=== PATIENT | female | born 1955 | race African-American/Black ===

== ENCOUNTER 2018-07-19 06:26 | Outpatient (CLI) ==
--- NOTE | 2018-07-19 10:13 | ECHO2D ---
Date of Exam: 07/19/18 Ordering Physician: DR. CHIOMA PINEDA Room #: OP Reason for Echo: HEART MURMUR M-Mode Normal Adult Results LV Dimensions Normal Adult Results AoV Opening excursions >1.6 >1.6 LVEDD-base- 3.5-5.8 3.6 Ao root dimensions 2.0-3.7 2.8 LVESD-base- 3.1-4.6 L. Atrium dimensions 1.9-3.8 3.4 Post. Wall thickness 0.8-1.1 1.1 IV septum (thickness) 0.7-1.2 1.2 Post. Wall excursion 0.72-1.3 NORMAL Septal motion NORMAL Systolic motion R. Ventricular cavity 1.5-2.0 NORMAL LVEF 60% 65% Paradoxical septal wall motion NORMAL 2-D : 2-D M Mode Echocardiogram was performed using apical four chamber and left parasternal long and short axis views. Mitral, tricuspid and aortic valves appear to be normal. Contractility of the left ventricle seems to be normal, so is the cavity size. Left atrial cavity size and aortic root appear to be normal. There is no pericardial effusion. There is no thrombus noted in the left ventricular or left aortic cavity. No mitral valve prolapse noted. M-MODE: MV: NORMAL AV: NORMAL TV: NORMAL PV: CHAMBER SIZE: NORMAL WALL MOTION: NORMAL PERICARDIUM: NORMAL INTERPRETATION: 1. BORDERLINE LEFT VENTRICULAR HYPERTROPHY 2. NORMAL VALVES 3. NORMAL LEFT VENTRICULAR CONTRACTILITY 4. NORMAL LEFT ATRIAL AND LEFT VENTRICLE SIZE MTDD
== END 2018-07-19 06:27 | disposition home or self-care (01) ==
LOC: CAR 06:26
PROVIDERS: ATTEND Family Medicine
DX: R01.1 Cardiac murmur, unspecified (principal)

== ENCOUNTER 2018-07-21 08:28 | Outpatient (CLI) ==
--- NOTE | 2018-07-30 10:54 | MAMMO ---
EXAM: Digital screening mammogram with tomosynthesis HISTORY: Screening COMPARISON: 07/27/2017 FINDINGS: Digital MLO and CC views of the right and left breast were performed. Tomosynthesis was performed. Computer aided detection utilized. There are scattered fibroglandular densities. Benign appearing bilateral calcifications. Nodule right central lateral breast posterior depth that likely corresponds with a nodule in the central breast on MLO view. Nodule in the left retroareolar breast . Nodule in the left superior lateral breast. IMPRESSION: Right breast nodule and two left breast nodules. Bilateral diagnostic mammogram and u ltrasound recommended. BIRADS category 0, incomplete
== END 2018-07-21 08:29 | disposition home or self-care (01) ==
LOC: RAD 08:28
PROVIDERS: ATTEND Family Medicine
DX: Z12.31 Encounter for screening mammogram for malignant neoplasm of breast (principal)

== ENCOUNTER 2018-08-09 10:33 | Outpatient (CLI) ==
--- NOTE | 2018-08-09 11:45 | US ---
EXAM: Bilateral breast ultrasound. History: Bilateral breast masses. Comparison: Bilateral diagnostic mammogram 08/09/2018 Technique: Multiple sonographic images through the bilateral breast were obtained. Color duplex Dop pler was used to interrogate vascular flow. Findings: There are several anechoic simple cysts within the left retroareolar region with the large st measuring 0.6 cm. These correlate with mammography. 1 cm lobulated mixed echogenic lesion within the left axillary tail. This correlates with mammography. 0.5 cm simple cyst within the right alan st at 8 o'clock 8 cm from nipple. This correlates with mammography. Impression: 1. Probably benign 1 cm lobulated lesion within the left axillary tail. Differential diagnosis woul d include lymph node or cyst cluster. Recommend follow-up ultrasound and mammogram in 6 months to do cument stability. BIRADS 3, probably benign
--- NOTE | 2018-08-09 11:47 | MAMMO ---
EXAM: Bilateral digital diagnostic mammogram (2-D and 3-D) History: Bilateral breast masses. Comparison: Bilateral mammogram 07/21/2018 Findings: Additional views of the bilateral breasts were obtained. The additional views confirm a 9 o'clock right breast mass, subareolar left breast masses and mass within the left axillary tail. No suspicious microcalcifications. Impression: Indeterminate bilateral breast masses. Recommend further evaluation with bilateral ultr asound. BIRADS 0, incomplete further evaluation recommended
== END 2018-08-09 10:34 | disposition home or self-care (01) ==
LOC: RAD 10:33
PROVIDERS: ATTEND Family Medicine
DX: N63.0 Unspecified lump in unspecified breast (principal)

== ENCOUNTER 2019-02-16 08:15 | Outpatient (RCR) ==
--- NOTE | 2019-02-07 11:44 | RS.OPPTDN ---
Subjective Date of Note: 02/07/19 Visit #: 4 Number of visits approved by Insurance: 8 Date of Evaluation: 01/21/19 Payer Source: Medicaid Treatment Diagnosis: Low back pain, sciatica R LE Current Subjective/complaints:: Patient states back pain is lessening, but did elevate over the weekend due to prolonged driving with family and up on her feet preparing meals. *Precautions: n/a - Treatment Modality: Ultrasound Parameters/Method Applied: continuous @ 1.5 w/cm2 x 11 mins to the R lumbar paraspinals and SI joint Patient Position: Left Sidelying - Heat/Cryotherapy Treatment: Hot Pack (over the low back and R hip x 20 mins in sidelying) Interventions - Exercise/Activities/Manual Therapy Exercises/Activities: Assisted stretching of: SKTC, HS, Piriformis, figure 4, and lower trunk rotation bilaterally x 4. Patient continues with pelvic stability: pillow squeezes, isometric hip abd, isometric hip flexion, QS and SLR (for the R) 2x10. Added bridging 2x10 reps. Total minutes of Exercise: 22 Manual Therapy: n/a HOME EXERCISE PROGRAM: pt given written HEP including: hamstring stretch, piriformis stretch, knee to chest, isometric hip add, resisted hip flex, prone lying. - Charges Timed Code Treatment Minutes: 32 Total Treatment Time: 52 Procedures billed for this date of service:: hp, u/s, ex Assessment: Patient has been having less pain through therapy interventions demo also improved HS length, but over the weekend she has had elevated pain related to prolonged driving and then standing visiting and preparing meals for family. She demo increased tightness with HS today, but should benefit from further progression of stretching and trunk strengthening. Patient Education: Body/Joint mechanics, Home Exercise Program Patient demonstrates compliance with HEP?: Yes Short Term Goals Goal #1: pt independent with initial HEP Goal to be met by: 02/04/19 Progress towards Goal:: Progressing Goal #2: pt demonstrate decreased muscle tightness B hamstring, piriformis ms. 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 Goal to be met by: 02/25/19 Plan Dates of Culinary Intern Goals: 02/25/19 Expiration date of current Insurance Approval:: 02/25/19 PLAN: Patient to continue BIW for modalities and therex for the low back and R SI
--- NOTE | 2019-02-09 10:09 | RS.OPPTDN ---
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 However, she has been able to wean down off of prescription pain medication to now only taking it 2 times per week. She also admits that yesterday (prior to registration) was the first day she actually felt significant relief to her R low back. She is having less frequent and less intense pain to the R SI. No pain today to the LEs. Patient says she is performing HEP. *Precautions: n/a - Treatment Modality: Ultrasound Parameters/Method Applied: continuous @ 1.5 w/cm2 x 10 mins to the R lumbar paraspinals and SI joint Patient Position: Left Sidelying - Heat/Cryotherapy Treatment: Hot Pack (over the low back and R SI x 15 mins in sidelying) Interventions - Exercise/Activities/Manual Therapy Exercises/Activities: Assisted stretching of: SKTC, HS, Piriformis, figure 4, and lower trunk rotation bilaterally x 4. Patient continues with pelvic stability: pillow squeezes, isometric hip abd, isometric hip flexion, QS and SLR (for the R) 2x10. Bridging 2x10 reps. Patient educated on general nutrition to assist with healing and promote improved pain. Encouraged increased water intake to flush inflammation and continuing to use ice/ heat for relief during flares with also maintaining pillow support for improved ease for bedtime. Total minutes of Exercise: 20 Manual Therapy: n/a HOME EXERCISE PROGRAM: pt given written HEP including: hamstring stretch, piriformis stretch, knee to chest, isometric hip add, resisted hip flex, prone lying. - Charges Timed Code Treatment Minutes: 30 Total Treatment Time: 45 Procedures billed for this date of service:: hp, u/s, ex Assessment: Patient demo improved R HS and piriformis length when compared to last week. She presents with decreased tenderness to mild palpation to the R SI joint. She is compliant with HEP and is proactive with performing when she begins to have soreness. She has progressed with not having radicular symptoms to the LEs, but intermittently to the R SI. Michelle has been able to decrease dependency on prescription pain meds to only taking twice per week. 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 She is also actively caring for 2 granddaughters and would benefit from possibly adding estim to u/s and further strengthening/aerobic activity. Patient Education: Education of diagnosis, Body/Joint mechanics, Home Exercise Program, Education of Plan of Care Patient demonstrates compliance with HEP?: Yes Short Term Goals Goal #1: pt independent with initial HEP Goal to be met by: 02/04/19 Progress towards Goal:: Met Goal #2: pt demonstrate decreased muscle tightness B hamstring, piriformis ms. Goal to be met by: 02/04/19 Progress towards Goal:: Met Goal #3: Decrease pain < 6/10 Goal to be met by: 02/04/19 Progress towards Goal:: Met Skilled Nursing Goals Goal #1: pt report no radiating pain into LE's Goal to be met by: 02/25/19 Progress towards goal: Progressing Goal #2: Decrease low back pain <4/10 Goal to be met by: 02/25/19 Progress towards goal: Progressing Goal #3: Improve lumbar ROM WFL's w less pain Goal to be met by: 02/25/19 Progress towards goal: Progressing Goal #4: pt able to participate with normal household activities w less pain. 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
--- NOTE | 2019-02-14 14:35 | RS.OPPTDN ---
Subjective Date of Note: 02/14/19 Visit #: 6 Number of visits approved by Insurance: 8, pending Date of Evaluation: 01/21/19 Payer Source: Medicaid Treatment Diagnosis: Low back pain, sciatica R LE Current Subjective/complaints:: Patient says she had some soreness into the R side of her low back running into her groin yesterday while up on her feet cooking and visiting with grandchildren/family. She says she stopped what she was doing and performed stretches and those symptoms went away. *Precautions: n/a Pain Assessment - Pain Description Pain Location: Pain at best 0/10, 710 at worst - Treatment Modality: Ultrasound Parameters/Method Applied: continuous @ 1.5 w/cm2 x 10 mins to the R SI and R L4 /L5 paraspinals Patient Position: Left Sidelying - Heat/Cryotherapy Treatment: Hot Pack (over the low back and R hip/SI x 15 mins in L sidelying) Interventions - Exercise/Activities/Manual Therapy Exercises/Activities: Assisted stretching of: SKTC, HS, Piriformis, figure 4, and lower trunk rotation bilaterally x 4. Patient continues with pelvic stability: ball squeezes, isometric hip abd, isometric hip flexion, QS and SLR (for the R) 2x10. Bridging 2x10 reps. Hooklying hip abd with red tband, and red tband for R hip flexion with knee bent. Total minutes of Exercise: 22 Manual Therapy: n/a HOME EXERCISE PROGRAM: pt given written HEP including: hamstring stretch, piriformis stretch, knee to chest, isometric hip add, resisted hip flex, prone lying. - Charges Timed Code Treatment Minutes: 32 Total Treatment Time: 47 Procedures billed for this date of service:: hp, u/s, ex Assessment: Patient having less frequent pain to the R SI and groin and less intense. She also is attentive enough to when she notices this radicular pain, she stops what she is doing and performs HEP, which at times takes pain completely away. HS and piriformis length are now normalized. She will finish up one more session this week to reassess Oswestry LBP Scale and progress trunk and hip strengthening. Patient Education: Education of diagnosis, Body/Joint mechanics, Home Exercise Program, Education of Plan of Care Patient demonstrates compliance with HEP?: Yes Short Term Goals Goal #1: pt independent with initial HEP Goal to be met by: 02/04/19 Progress towards Goal:: Met Goal #2: pt demonstrate decreased muscle tightness B hamstring, piriformis ms. 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 Goal to be met by: 02/25/19 Progress towards goal: Progressing Plan Dates of Senior Living Goals: 02/25/19 Expiration date of current Insurance Approval:: 02/25/19 PLAN: continue x 1 more session
--- NOTE | 2019-02-16 14:55 | RS.OPPTDN ---
Subjective Date of Note: 02/16/19 Visit #: 7 Number of visits approved by Insurance: pending, requested 8 Date of Evaluation: 01/21/19 Payer Source: Medicaid Treatment Diagnosis: Low back pain, sciatica R LE Current Subjective/complaints:: Patient says her pain has been significantly better by PT. Reports she continues working on HEP and plans to begin a walking routine as the weather cools. She says her pain is along the waistline , but is very minimal. *Precautions: n/a - Treatment Modality: Ultrasound Parameters/Method Applied: Continuous @ 1.5 w/cm2 x 10 mins to bilateral lower lumbar paraspinals with focus to the R Patient Position: Left Sidelying - Heat/Cryotherapy Treatment: Hot Pack (mid to low back in supine x 20 mins) Interventions - Exercise/Activities/Manual Therapy Exercises/Activities: Assisted stretching of: SKTC, HS, Piriformis, figure 4, and lower trunk rotation bilaterally x 4. Patient continues with pelvic stability: ball squeezes, isometric hip abd, isometric hip flexion, QS and SLR (for the R) 2x10. Bridging 2x10 reps. Hooklying hip abd progressed with green tband, and green tband for R hip flexion with knee bent. Assisted with Oswestry LBP Scale and discussed Discharge planning and progressive HEP. Total minutes of Exercise: 22 Manual Therapy: n/a HOME EXERCISE PROGRAM: pt given written HEP including: hamstring stretch, piriformis stretch, knee to chest, isometric hip add, resisted hip flex, prone lying. - Objective Findings Observations,measurements,etc.: Oswestry LBP Scale: 24 or 48% impairment. Eval measured 28 or 56% - Charges Timed Code Treatment Minutes: 34 Total Treatment Time: 54 Procedures billed for this date of service:: hp, u/s, ex Assessment: Patient had demo mild improvement per functional assessment and with admission of decreased pain with less frequent and intense pain. She demo increased R hip and knee strength to 5/5. Patient Education: Education of diagnosis, Body/Joint mechanics, Home Exercise Program, Education of Plan of Care Patient demonstrates compliance with HEP?: Yes Short Term Goals Goal #1: pt independent with initial HEP Goal to be met by: 02/04/19 Progress towards Goal:: Met Goal #2: pt demonstrate decreased muscle tightness B hamstring, piriformis ms. 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 Goal to be met by: 02/25/19 Progress towards goal: Partially Met Comments: Patient finds them easier to perform and have less intense pain Plan Dates of Nursery Worker Goals: 02/25/19 Expiration date of current Insurance Approval:: 02/25/19 PLAN: Patient is discharged with advanced HEP.
== END 2019-03-05 23:59 ==
PROVIDERS: ATTEND Family Medicine
DX: M54.30 Sciatica, unspecified side (principal)

== ENCOUNTER 2019-02-18 07:57 | Outpatient (CLI) | END 2019-02-18 07:58 | disposition home or self-care (01) | LOC: RAD 07:57 | PROVIDERS: ATTEND Family Medicine | DX: N60.02 Solitary cyst of left breast (principal) ==